=== PATIENT | female | born 1950 | race Caucasian/White ===

== ENCOUNTER 2016-09-22 10:16 | Inpatient (IN) | payer MEDICARE, OTHER ==
[~2016-09-22 10:16] MED LIST: ACIDOPHILUS1 CAP; ACIDOPHILUS1 CAP PO; ACIDOPHILUS1 EAC3 PO; ACIDOPHILUS1 EACH PO; ADVAIR 25028 BLISTE1 PO; ADVIL; ALPHAGAN; ALPHAGAN P15 ML OP; ALPHAGAN P5 M1 EACH EYE; ATORVASTATIN CA20 M1 PO; AVELOX400 MG PO; B-121000 MC2 PO; CALCIUM CITRAT1 EA25 PO; CALCIUM WITH VI1 TAB PO; CARAFATE1 G2 PO; CARAFATE1 GM/10 ML NG; COLACE-T100 MG PO; COREG6.25 M1 PO; COREG6.25 MG PO; COSOPT EYE DROP10 ML OP; CPAP; CYMBALTA60 MG PO; DIFLUCAN150 M1 PO; DIOVAN160 M1 PO; DIOVAN40 MG PO; FISH OIL 1,0001 CA PO; FISH OIL 1,0001 CA1; FISH OIL 11000 MG/CA PO; FISH OIL1 CAP PO; FOLIC ACID1 M1 PO; FOLIC ACID1 MG PO; GABAPENTIN300 M1 PO; GABAPENTIN300 MG PO; IBUPROFEN PO; INHALER; IRON1 TA1 PO; KEFLEX500 M4 PO; KEPPRA250 MG PO; KEPPRA500 M3 PO; LASIX20 M1 PO; LASIX20 MG PO; LEXAPRO10 MG PO; LEXAPRO20 M2 PO; LOVENOX40 MG/0.4 SQ; LUNESTA3 M1 PO; MELATIN3 MG PO; METFORMIN HCL500 M2 PO; METHOTREXA25 MG/1 M1 IJ; MILK OF MAGNESIA PO; MULTIVITAMIN1 CAP; MULTIVITAMIN1 TAB PO; MULTIVITAMINS1 EAC6 PO; NEXIUM40 M1 PO; NEXIUM40 MG PO; NORCO 5/325 TAB1 TAB PO; NORCO 5/3251 TA1 PO; OMEGA-31000 MG; ONDANSETRON HCL4 M2 PO; PHENOBARBITAL97.2 MG; PREMARIN45 GM; PROAIR HFA8.5 GM INH; PROCTOFOAM15 GM RC; SENOKOT-S (SENN1 TAB PO; SENOKOT-S TABL1 EACH PO; SOLARAZE TP; SOLARAZE100 GM TOP; SPIRIVA RESPIMAT4 G1 INH; TENORMIN; TENORMIN50 MG; TRAVATAN Z5 M1 EACH EYE; TRIAMCINOLONE; TUMS500 MG; VICTOZA 2-0.6 MG/0.1 SC; VIT B12; VITAMIN B 12; VITAMIN B-121000 MCG PO; VITAMIN B1250 MCG; VITAMIN D31000 UNI3 PO; VITAMIN D50000 UNIT PO; XANAX0.25 MG; XIGDUO XR 5 MG1 EAC1 PO; ZITHROMAX250MG Z-PAK PO; [UNRECOGNIZED DRUG - OTHER]; [UNRECOGNIZED DRUG - OTHER] OP
[2016-09-22 11:17] LABS: PROTHROMBIN TIME 12.1 SECONDS (9.0-13.6)
[2016-09-23 05:08] LABS: CREATININE 0.98 mg/dl (0.50-1.10); POTASSIUM 4.3 mmol/L (3.7-5.1); eGFR VALUE FOR BLACK 69 mL/Min
[2016-09-23 05:11] LABS: BASO % 0.1 % (0-2); EOS % 0.1 % (0-7); HCT-HEMATOCRIT 37.6 % (34.0-49.0); HGB-HEMOGLOBIN 12.1 gm/dl (12.0-15.5); LYMPH ABSOLUTE COUNT 2.4 tho/cmm (0.8-4.5); MCH (MEAN CORPUSCULAR HGB) 29.4 pg (28.0-32.0); MCHC MEAN CORPUSCULAR HGB CONC 32.2 % (32.0-36.0); MCV (MEAN CELL VOLUME) 91.3 fl (82.0-96.0); MEAN PLATELET VOLUME 11.9 cmc (9.4-12.4); MONO % 10.4 % (0-12); MONOCYTE ABSOLUTE COUNT 1.5 tho/cmm (0.0-1.2); NEUTROPHIL ABSOLUTE COUNT 10.2 tho/cmm (1.6-8.0); NEUTROPHIL-AUTOMATED 10.2 tho/cmm (1.6-8.0); NEUTROPHILS % 72.4 % (40-80); PLATELET COUNT 212 tho/cmm (150-450); RED BLOOD COUNT 4.12 mil/cmm (4.00-5.20); RED CELL DISTRIBUTION WIDTH 13.7 % (12.4-16.4); WHITE BLOOD COUNT 14.1 tho/cmm (4.0-10.0)
[2016-09-24] MEDS ORDERED: XARELTO10 M1 PO (10:37)
[2016-09-24] MEDS ORDERED: DILAUDID2 M1 PO (10:38)
[2016-09-24] MEDS ORDERED: ULTRAM50 M1 PO (10:39)
[2016-09-24] MEDS ORDERED: SENOKOT-S TABL1 EACH PO (10:42)
[2016-09-24] MEDS ORDERED: TYLENOL325 M2 PO (10:44)
[2016-09-24] MEDS ORDERED: ROXICODONE5 M2 PO (10:45)
== END 2016-09-24 14:40 | disposition home health service (06) | DRG 470 ==
LOC: SHSB 10:16 → ORE 11:23 → PACU 13:23 → 5EA 15:01
PROVIDERS: Family Medicine; ADMIT Orthopaedic Surgery Foot and Ankle Surgery
PROC: 0SRC0J9 Replacement of Right Knee Joint with Synthetic Substitute, Cemented, Open Approach (ICD-10-PCS; principal; 2016-09-22)
PROC: 5A09357 Assistance with Respiratory Ventilation, Less than 24 Consecutive Hours, Continuous Positive Airway Pressure (ICD-10-PCS; 2016-09-22)
DX: M17.11 Unilateral primary osteoarthritis, right knee (principal); I42.9 Cardiomyopathy, unspecified; Z86.74 Personal history of sudden cardiac arrest; Z68.42 Body mass index [BMI] 45.0-49.9, adult; E11.9 Type 2 diabetes mellitus without complications; Z95.810 Presence of automatic (implantable) cardiac defibrillator; I10 Essential (primary) hypertension; K21.9 Gastro-esophageal reflux disease without esophagitis; K22.70 Barrett's esophagus without dysplasia; G47.33 Obstructive sleep apnea (adult) (pediatric); J44.9 Chronic obstructive pulmonary disease, unspecified; G40.909 Epilepsy, unspecified, not intractable, without status epilepticus; E55.9 Vitamin D deficiency, unspecified; Z96.652 Presence of left artificial knee joint; Z88.8 Allergy status to other drugs, medicaments and biological substances; E66.9 Obesity, unspecified; Z79.4 Long term (current) use of insulin
CPT/HCPCS: C1776; J0171; J0690; J1170; J1815; J2270; J2795; J3010